=== PATIENT | male | born 1990 | race Caucasian/White ===

== ENCOUNTER 2021-09-29 09:40 | Emergency (ER) | payer MEDICAID, SELFPAY ==
--- NOTE | 2021-09-29 09:47 | ED_ITS ---
HPI - General Adult General: Chief complaint: Psychiatric Symptoms Stated complaint: HEARING VOICES, USED METH Time Seen by Provider: 09/29/21 09:40 Source: patient Mode of arrival: EMS Limitations: no limitations History of Present Illness: 30-year-old male awake and alert he states he has been having auditory hallucinations he denies any suicidal homicidal ideation auditory hallucinations began this morning after he used some methamphetamine. He is also on Suboxone. He is well behaved he is not acutely psychotic at this time he repeatedly denies any suicidal homicidal ideations. Denies any other pain or injury. He has used methamphetamines in the past. Onset (ago): hour(s) Severity: mild Relieving factors: none Exacerbating factors: none Associated symptoms: Deny chest pain, confusion, cough, diaphoresis, decreased appetite, headache(s), malaise, nausea, rash, palpitations or seizures Review of Systems Const: Denies: malaise or diaphoresis Card: Denies: chest pain or palpitations GI: Denies: nausea Skin/Breast: Denies: rash Neuro: Denies: headache(s) or confusion PFS ED PFSH: Medical History (Updated 09/29/21 @ 13:02 by Rashel Berrios DO) Methamphetamine abuse Social History (Updated 09/29/21 @ 13:02 by Rashel Berrios DO) Smoking and tobacco status: current every day smoker Alcohol intake: current Substance/Drug Use: current Substance/Drug use type: Methamphetamine Physical Exam Const: COMMON NORMALS: no acute distress GENERAL APPEARANCE: cooperative and comfortable ORIENTATION/CONSCIOUSNESS: Yes awake, Yes oriented to person, Yes oriented to place and Yes oriented to time HENMT: COMMON NORMALS: normocephalic, atraumatic and hearing grossly normal bilaterally HEAD & SCALP: normocephalic and atraumatic Resp: COMMON NORMALS: normal respiratory effort, No retractions, No use of accessory muscles and clear to auscultation bilaterally AUSCULTATION: clear to auscultation bilaterally Cardio: COMMON NORMALS: regular rate, regular rhythm and No murmurs present (Cardio) RATE: regular rate RHYTHM: regular rhythm GI: COMMON NORMALS: Soft to palpation and No hepatosplenomegaly present AUSCULTATION: Yes normoactive bowel sounds PALPATION: Yes Soft to palpation, No Tenderness to palpation present (GI), No Guarding due to palpation present (GI) and Yes No hepatosplenomegaly present Extremity: COMMON NORMALS: normal to inspection, capillary refill normal, no clubbing, cyanosis or edema, no calf tenderness and no pedal edema Neuro: SENSORIUM/ORIENTATION: Yes oriented to person, Yes oriented to place and Yes oriented to time Skin: COMMON NORMALS: no rashes or lesions noted GENERAL SKIN EXAM: no rashes or lesions noted Course Vital Signs: Vital signs: Vital Signs Pulse Rate 93 09/29/21 11:31 Respiratory Rate 16 09/29/21 11:31 Blood Pressure 151/92 09/29/21 11:31 Pulse Oximetry 99 09/29/21 11:31 MDM - General Adult Medical Decision Making His hallucinations are caused by his methamphetamine use encouraged him to abstinence from methamphetamines. Recommend he follow-up with an outpatient facility such as [facility]. We will give him hydroxyzine single p.o. dose here given his p.o. dose to use as needed and patient can safely be discharged home at this time he has no other emergent medical conditions at this time. Recommend he follow-up with his primary care doctor for his regular prescribed medications. At this point patient does not require inpatient care. At time of discharge patient rescreened again and he denies any suicidal homicidal intents. Medical Records I reviewed the patient's medical records. Lab Data I reviewed the patient's lab results. Discharge Plan Discharge Patient Disposition: Home Clinical Impression: Drug-induced psychotic disorder Condition: Stable Prescriptions: New hydroxyzine HCl 25 mg tablet 25 mg PO Q6H PRN (Reason: anxiety) Qty: 14 0RF Discharge Orders: Discharge ED (Routine); Ordered 09/29/21 Ordered By: Rashel Berrios Patient Instructions: Methamphetamine Use Disorder (ED), Opioid Safety Activity Restrictions/Additional Instructions: Do not use methamphetamines recommend following up with outpatient treatment plan such as [facility] for assistance with abstinence abuse. Coding Level of Care Code ED Material Requirements Planning Manager for Ricardo Albarran
[2021-09-29 09:53] VITALS: BMI 22.3
[2021-09-29 10:00] VITALS: BP 151/92; PULSE 93; RESP 16; O2SAT 99
[2021-09-29] MEDS: hyDROXYzine 25 mg Capsule PO (10:10)
[2021-09-29 11:31] VITALS: BP 151/92; PULSE 93; RESP 16; O2SAT 99
== END 2021-09-29 10:33 | disposition home or self-care (01) ==
LOC: ER 10:02
PROVIDERS: Emergency Provider Family Medicine
DX: F15.959 Other stimulant use, unspecified with stimulant-induced psychotic disorder, unspecified (principal); F17.210 Nicotine dependence, cigarettes, uncomplicated
CPT/HCPCS: 99283